=== PATIENT | female | born 1990 | race Two or more races ===

== ENCOUNTER 2024-05-04 14:04 | Inpatient (IN) | payer MEDICAID, OTHER ==
[~2024-05-04] VITALS: Ht 165.1 cm; Wt 83.5 kg
[2024-05-04 15:16] LABS: Basophils # (auto) 0 10 ^3/uL (0-0.2); Basophils % (auto) 0.3 % (0.0-2.0); Eosinophils # (auto) 0 10 ^3/uL (0-0.8); Eosinophils % (auto) 0.6 % (0.0-7.0); Hematocrit 33.5 % (36.0-46.0); Hemoglobin 11.5 g/dL (12.2-16.2); Lymphocytes # (auto) 2.1 10 ^3/uL (0.4-5.4); Lymphocytes % (auto) 25.1 % (10.0-50.0); Mean Corpuscular Hemoglobin 31.1 pg (28.0-32.0); Mean Corpuscular Hgb Conc. 34.3 g/dL (32.0-36.0); Mean Corpuscular Volume 90.7 fL (80.0-100.0); Monocytes # (auto) 0.7 10 ^3/uL (0-1.3); Monocytes % (auto) 8.1 % (0.0-12.0); Neutrophils # (auto) 5.5 10 ^3/uL (1.6-8.6); Neutrophils % (auto) 65.9 % (37.0-80.0); Red Cell Distribution Width 13.9 % (11.8-14.3); White Blood Cell 8.3 10^3/uL (4.4-10.8)
[2024-05-04 15:30] LABS: Urine Bacteria None Seen /hpf (None Seen)
[2024-05-04 15:30] LABS: INR 0.92 (0.9-1.15); Partial Thromboplastin Time 26.6 SEC (24.5-34.5); Prothrombin Time 9.8 sec (9.3-11.8)
[2024-05-04 15:33] LABS: Alanine Aminotransferase 39 U/L (7-40); Albumin 3.4 g/dL (3.2-4.8); Alkaline Phosphatase 288 U/L (46-116); Anion Gap 9 (5-15); Aspartate Aminotransferase 26 U/L (13-40); BUN/Creatinine Ratio 13.5 (10.0-20.0); Bilirubin, Total 0.3 mg/dL (0.2-1.0); Blood Urea Nitrogen 7 mg/dL (9-23); Carbon Dioxide 22 mmol/L (20-30); Chloride 105 mmol/L (98-107); Glucose 137 mg/dL (74-106); Potassium 3.7 mmol/L (3.5-5.1); Sodium 136 mmol/L (136-145); Total Protein 6.4 g/dL (5.7-8.2)
[2024-05-04 15:58] LABS: Amphetamine Screen, Urine Neg (NEGATIVE); Barbiturate Scree,Urine Neg (NEGATIVE); Benzodiazephine Screen, Urine Neg (NEGATIVE); Cannabinoid Screen, Urine Neg (NEGATIVE); Cocaine Screen, Urine Neg (NEGATIVE); Opiate Scree,Urine Neg (NEGATIVE); Phencyclidine Screen, Urine Neg (NEGATIVE)
[2024-05-04] MEDS ORDERED: WITCH HAZEL-GLYCERIN PAD TOP PRN (16:00)
[2024-05-04] MEDS ORDERED: LIDOCAINE 2%HCL (LOCAL ANESTH.) INJ 20ML MDV IJ PRN (16:00)
[2024-05-04] MEDS ORDERED: BUTORPHANOL TARTRATE 2 MG/1 ML VIAL IV PRN ×2 (16:00)
[2024-05-04] MEDS ORDERED: DERMOPLAST 60ML BOTTLE TOP PRN (16:00)
[2024-05-04] MEDS ORDERED: PHISODERM TOP SOLN 240ML BTL TOP PRN (16:00)
[2024-05-04 16:02] LABS: Urine Blood Negative /uL (Negative); Urine Clarity Turbid (Clear); Urine Color Yellow (Yellow); Urine Mucus FEW (None Seen); Urine Protein, UAD 1+ (Negative); Urine Specific Gravity 1.034 (1.001-1.035); Urine Urobilinogen Normal (Negative); Urine WBC 12 /hpf (0 - 5)
[2024-05-04] MEDS: LACTATED RINGER'S 1,000 ML IV SCH (16:42)
[2024-05-04] MEDS: ceFAZolin 1GM/50ML 50 ML IV SCH (17:44)
[2024-05-04] MEDS ORDERED: PENICILLIN G POTASSIUM 2,500,000 UNITS in D5W 5% 50 ML IV SCH (20:00)
[2024-05-04] MEDS ORDERED: ONDANSETRON HCL 4 MG/2 ML VIAL IV PRN (20:30)
[2024-05-04] MEDS ORDERED: DIPHENOXYLATE W/ATROPINE 2.5 MG TAB PO PRN (20:30)
[2024-05-04] MEDS: miSOPROStol 50 MCG per PRE-CUT 1/2 TAB PO PRN (21:25)
[2024-05-05] VITALS (15 sets, daily range): BP systolic 100–126; BP diastolic 55–79; PULSE 69–136; RESP 16–40; TEMP 98.2–98.3; O2SAT 95–100
[2024-05-05] MEDS: ceFAZolin 1GM/50ML 50 ML IV SCH ×2 (01:15→11:23)
[2024-05-05] MEDS: PENICILLIN G POT 5MIL/D5 50ML 50 ML IV ONE ×2 (04:46→04:49)
[2024-05-05] MEDS ORDERED: MORPHINE SULF PF 5 MG/10 ML VIAL ONE (06:22)
[2024-05-05] MEDS ORDERED: fentaNYL CITRATE 100 MCG/2 ML VL ONE (06:23)
[2024-05-05] MEDS ORDERED: ONDANSETRON HCL 4 MG/2 ML VIAL ONE (06:25)
[2024-05-05] MEDS ORDERED: OXYTOCIN 10UNIT/ML 1ML VIAL ONE (06:25)
[2024-05-05] MEDS ORDERED: DexAMETHasone SOD PHOS 10MG/1ML VIAL INJ ONE (06:25)
[2024-05-05] MEDS ORDERED: PHENYLEPHRINE HCL 10 MG/ML VL ONE (06:26)
[2024-05-05] MEDS ORDERED: ONDANSETRON HCL 4 MG/2 ML VIAL IV PRN (07:30)
[2024-05-05] MEDS: CARBOPROST TROMETHAMINE 250 MCG/1ML VIAL IM ONE ×3 (07:46→08:37)
[2024-05-05] MEDS ORDERED: GLYCOPYRROLATE 0.2 MG/ML 1ML VIAL ONE (07:56)
[2024-05-05] MEDS ORDERED: KETOROLAC TROMETH 30 MG/ML 1ML VIAL ONE (07:56)
[2024-05-05] MEDS ORDERED: oxyTOCIN 10 UNIT/ML 10ML VIAL ONE (07:56)
[2024-05-05] MEDS ORDERED: HYDR-4902 PO (08:01)
[2024-05-05] MEDS ORDERED: DOCU-94 PO (08:01)
[2024-05-05] MEDS ORDERED: IBUP-1456 PO (08:01)
[2024-05-05] MEDS ORDERED: diphenhdrAMINE HCL 50 MG/1 ML VL IV PRN (08:30)
[2024-05-05] MEDS ORDERED: KETOROLAC TROMETH 30 MG/ML 1ML VIAL IV PRN (08:30)
[2024-05-05] MEDS ORDERED: DexAMETHasone SOD PHOS 10MG/1ML VIAL INJ IV PRN (08:30)
[2024-05-05] MEDS ORDERED: NALOXONE HCL 0.4 MG/ML VIAL IV PRN (08:30)
[2024-05-05] MEDS: MEPERIDINE HCL (25 MG/ML) 1ML VIAL IV ONE (08:50)
[2024-05-05] MEDS: miSOPROStol 100 mcg TAB PR PRN (09:00)
[2024-05-05] MEDS ORDERED: DIPHENOXYLATE W/ATROPINE 2.5 MG TAB PO PRN (09:00)
[2024-05-05] MEDS ORDERED: PENICILLIN G POTASSIUM 2,500,000 UNITS in D5W 5% 50 ML IV SCH (10:00)
[2024-05-05] MEDS ORDERED: FAMOTIDINE (10MG/ML) 2ML VL IV SCH (10:00)
[2024-05-05] MEDS: DIPHENOXYLATE W/ATROPINE 2.5 MG TAB ONE (10:31)
[2024-05-05 11:12] LABS: Basophils # (auto) 0 10 ^3/uL (0-0.2); Basophils % (auto) 0.2 % (0.0-2.0); Eosinophils # (auto) 0 10 ^3/uL (0-0.8); Lymphocytes # (auto) 1.5 10 ^3/uL (0.4-5.4); Lymphocytes % (auto) 9.3 % (10.0-50.0); Mean Corpuscular Hemoglobin 30.7 pg (28.0-32.0); Mean Corpuscular Hgb Conc. 33.3 g/dL (32.0-36.0); Mean Corpuscular Volume 92.2 fL (80.0-100.0); Monocytes # (auto) 0.5 10 ^3/uL (0-1.3); Monocytes % (auto) 3.1 % (0.0-12.0); Neutrophils # (auto) 14.3 10 ^3/uL (1.6-8.6); Neutrophils % (auto) 87.4 % (37.0-80.0); Red Blood Cells 3.58 10^6/uL (4.0-5.20); Red Cell Distribution Width 14.2 % (11.8-14.3); White Blood Cell 16.4 10^3/uL (4.4-10.8)
[2024-05-05 11:32] LABS: INR 0.93 (0.9-1.15); Prothrombin Time 9.9 sec (9.3-11.8)
[2024-05-05] MEDS: LACT. RINGERS/OXYTOCIN 20UNITS 500 ML IV ONE (11:32)
[2024-05-05] MEDS: ONDANSETRON HCL 4 MG/2 ML VIAL IV PRN (12:19)
[2024-05-05] MEDS: ACETAMINOPHEN IV 1000 MG/100ML (10MG/ML) IV PRN (17:03)
[2024-05-05 22:18] LABS: Basophils # (auto) 0 10 ^3/uL (0-0.2); Basophils % (auto) 0.2 % (0.0-2.0); Eosinophils # (auto) 0 10 ^3/uL (0-0.8); Hematocrit 27.7 % (36.0-46.0); Hemoglobin 9.1 g/dL (12.2-16.2); Lymphocytes # (auto) 2.1 10 ^3/uL (0.4-5.4); Lymphocytes % (auto) 13.6 % (10.0-50.0); Monocytes # (auto) 1.2 10 ^3/uL (0-1.3); Monocytes % (auto) 7.4 % (0.0-12.0); Neutrophils # (auto) 12.4 10 ^3/uL (1.6-8.6); Neutrophils % (auto) 78.8 % (37.0-80.0); Red Blood Cells 3.04 10^6/uL (4.0-5.20); Red Cell Distribution Width 13.8 % (11.8-14.3); White Blood Cell 15.7 10^3/uL (4.4-10.8)
[2024-05-05 22:36] LABS: Alanine Aminotransferase 39 U/L (7-40); Albumin 2.9 g/dL (3.2-4.8); Alkaline Phosphatase 225 U/L (46-116); Anion Gap 5 (5-15); Aspartate Aminotransferase 44 U/L (13-40); Bilirubin, Total 0.5 mg/dL (0.2-1.0); Calcium 8.6 mg/dL (8.7-10.4); Carbon Dioxide 23 mmol/L (20-30); Chloride 104 mmol/L (98-107); Glucose 100 mg/dL (74-106); Potassium 3.9 mmol/L (3.5-5.1); Sodium 132 mmol/L (136-145); Total Protein 5.3 g/dL (5.7-8.2)
[2024-05-05 22:40] LABS: BUN/Creatinine Ratio 9.8 (10.0-20.0); Blood Urea Nitrogen < 5 mg/dL (9-23)
[2024-05-06] VITALS (12 sets, daily range): BP systolic 93–121; BP diastolic 45–78; PULSE 64–110; RESP 14–20; TEMP 97.5–98.5; O2SAT 94–98
[2024-05-06] MEDS: KETOROLAC TROMETH 30 MG/ML 1ML VIAL IV ONE (04:34)
[2024-05-06 06:39] LABS: Basophils # (auto) 0 10 ^3/uL (0-0.2); Basophils % (auto) 0.2 % (0.0-2.0); Eosinophils # (auto) 0 10 ^3/uL (0-0.8); Eosinophils % (auto) 0.1 % (0.0-7.0); Hematocrit 24.3 % (36.0-46.0); Hemoglobin 8.3 g/dL (12.2-16.2); Mean Corpuscular Hgb Conc. 34.2 g/dL (32.0-36.0); Monocytes % (auto) 7.3 % (0.0-12.0)
[2024-05-06 06:41] LABS: Lymphocytes # (auto) 1.9 10 ^3/uL (0.4-5.4); Lymphocytes % (auto) 14.9 % (10.0-50.0); Mean Corpuscular Volume 90.7 fL (80.0-100.0); Monocytes # (auto) 0.9 10 ^3/uL (0-1.3); Neutrophils # (auto) 10.1 10 ^3/uL (1.6-8.6); Neutrophils % (auto) 77.5 % (37.0-80.0); Red Blood Cells 2.68 10^6/uL (4.0-5.20); Red Cell Distribution Width 13.9 % (11.8-14.3)
[2024-05-06] MEDS: HYDROcodone-ACET 5/325MG TAB PO PRN (07:33)
[2024-05-06] MEDS: IBUPROFEN 800 MG TAB PO PRN (15:05)
[2024-05-06] MEDS: FERROUS SULFATE 325mg EC TAB PO SCH (18:00)
[2024-05-06] MEDS: DOCUSATE SOD 100 MG CAP PO SCH (19:07)
[2024-05-06] MEDS: SIMETHICONE 80 MG CHEWABLE TABLET PO SCH (19:07)
[2024-05-06] MEDS: LACT. RINGERS/OXYTOCIN 20UNITS 500 ML IV ONE (19:56)
[2024-05-06] MEDS: METHYLERGONOVINE MALEATE 0.2 MG/ML AMP IM ONE (19:56)
[2024-05-06] MEDS: TERBUTALINE SULFATE 1 MG/ML 1ML VIAL SC ONE (21:11)
[2024-05-06] MEDS: TRANEXAMIC ACID 20 ML ONE (21:12)
[2024-05-06] MEDS: LACTATED RINGER'S 1,000 ML IV ONE (21:12)
[2024-05-06] MEDS: LACT. RINGERS/OXYTOCIN 20UNITS 1,000 ML IV ONE (21:12)
[2024-05-06] MEDS: DIPHENOXYLATE W/ATROPINE 2.5 MG TAB PO ONE (21:13)
[2024-05-06] MEDS: miSOPROStol 100 mcg TAB ONE (21:13)
[2024-05-07] MEDS ORDERED: FER325T PO (02:32)
[2024-05-07 03:00] VITALS: BP 112/76; PULSE 78; RESP 18; TEMP 98.5; O2SAT 96
[2024-05-07] MEDS: HYDROcodone-ACET 5/325MG TAB PO PRN (06:37)
[2024-05-07 06:58] VITALS: BP 135/80; PULSE 92; RESP 18; TEMP 98.5; O2SAT 97
[2024-05-07 07:01] VITALS: PULSE 92; RESP 18; O2SAT 94
[2024-05-07 11:00] VITALS: BP 106/67; PULSE 90; RESP 18; TEMP 98.2; O2SAT 98
[2024-05-07 14:45] VITALS: BP 116/80; PULSE 78; RESP 18; TEMP 97.8; O2SAT 98
== END 2024-05-07 14:55 | disposition home or self-care (01) | DRG 540 ==
LOC: LDRP 14:04 → OBSVTOIN 15:58 → LDRP 15:59
PROVIDERS: ADMIT Obstetrics & Gynecology; ATTEND Obstetrics & Gynecology
PROC: 10D00Z1 Extraction of Products of Conception, Low, Open Approach (ICD-10-PCS; principal; 2024-05-05 07:11)
DX: O77.0 Labor and delivery complicated by meconium in amniotic fluid (principal); D62 Acute posthemorrhagic anemia; O99.344 Other mental disorders complicating childbirth; O99.892 Other specified diseases and conditions complicating childbirth; O76 Abnormality in fetal heart rate and rhythm complicating labor and delivery; F41.9 Anxiety disorder, unspecified; Z3A.40 40 weeks gestation of pregnancy; Z56.0 Unemployment, unspecified; Z79.891 Long term (current) use of opiate analgesic; Z79.899 Other long term (current) drug therapy; Z37.0 Single live birth
CPT/HCPCS: 36415; 59025; 76805; 76818; 80053; 80307; 81001; 81002; 83036; 84112; 85025; 85384; 85610; 85730; 86592; 86703; 86762; 86803; 86850; 86900; 86901; 87081; 87340; 94760; 94762; 96360; 96361; 96365; 96366; 96374; G0378; J0131; J1100; J1885; J2405; J2540; J2590; J7060